=== PATIENT | female | born 1990 | race Caucasian/White ===

== ENCOUNTER 2017-01-18 11:17 | Outpatient (CLI) | payer OTHER ==
--- NOTE | 2017-01-18 13:08 | DIAGNOSTIC IMAGING REPORT ---
PROCEDURE: US LTD BREAST ULTRASOUND - RT INDICATION: 6 MONTH FOLLOW UP TO CONFIRM STABILITY TECHNIQUE: High resolution cole scale and color Doppler sonographic images of the right breast with limited comparison imaging of the left breast. COMPARISON: Comparison is made to right breast ultrasound (07/27/2016) and outside right breast ultrasound from [facility] imaging on 07/09/2015. FINDINGS: Right breast parenchyma is heterogeneous in appearance. There are multiple adjacent nodular densities in the lateral right breast. These include 6 mm and 3 mm benign simple cysts, and 3 mm and 4 mm ovoid nodules which demonstrate central echogenicity and vascularity (consistent with normal benign intramammary lymph nodes). IMPRESSION: 1. There are multiple benign appearing nodules in the right lateral breast including two simple cysts, and two small benign nodules which are consistent with normal intramammary lymph nodes. While there is no evidence of underlying abnormality, early follow-up right breast ultrasound in 6 months is recommended to confirm stability. 2. Findings discussed with the patient. RESULT CODE: 3- Probably benign findings - initial short-interval follow-up suggested. A. A negative report should not delay biopsy if a dominant or clinically suspicious mass is present. 10-15% of cancers are not identified by x-ray. B. A negative report may reinforce clinical impression. C. Adenosis and dense breasts may obscure an underlying neoplasm. D. False positive reports average 6-10%. E.. A yearly screening mammogram is recommended. A reminder letter will be scheduled.
== END 2017-01-18 23:00 ==
LOC: US SRH 11:17
DX: R92.2 Inconclusive mammogram (principal)